=== PATIENT | male | born 1965 | race Two or more races ===

== ENCOUNTER 2024-12-03 16:57 | Inpatient (IN) | payer MEDICARE, MEDICAID ==
[~2024-12-03] VITALS: Ht 165.1 cm; Wt 87.8 kg
[2024-12-03 17:33] LABS: Basophils # (auto) 0.1 10 ^3/uL (0-0.2); Basophils % (auto) 0.4 % (0.0-2.0); Eosinophils # (auto) 0 10 ^3/uL (0-0.8); Hematocrit 44.5 % (41.0-53.0); Hemoglobin 15.1 g/dL (13.5-17.5); Lymphocytes # (auto) 1.8 10 ^3/uL (0.4-5.4); Lymphocytes % (auto) 12.6 % (10.0-50.0); Mean Corpuscular Hemoglobin 28.4 pg (28.0-32.0); Mean Corpuscular Volume 83.5 fL (80.0-100.0); Monocytes # (auto) 0.4 10 ^3/uL (0-1.3); Monocytes % (auto) 2.5 % (0.0-12.0); Neutrophils # (auto) 11.9 10 ^3/uL (1.6-8.6); Neutrophils % (auto) 84.5 % (37.0-80.0); Platelet Count (auto) 358 10^3/uL (140-450); Red Blood Cells 5.33 10^6/uL (4.5-5.90); Red Cell Distribution Width 14.1 % (11.8-14.3); White Blood Cell 14.1 10^3/uL (4.4-10.8)
[2024-12-03] MEDS: ONDANSETRON HCL 4 MG/2 ML VIAL IV ONE (17:50)
[2024-12-03] MEDS: SODIUM CHLORIDE 0.9% 1,000 ML IV ONE (17:50)
[2024-12-03] MEDS: FAMOTIDINE (10MG/ML) 2ML VL IV ONE (17:50)
[2024-12-03 17:54] LABS: Alanine Aminotransferase 32 U/L (7-40); Alkaline Phosphatase 113 U/L (46-116); Anion Gap 11 (5-15); Aspartate Aminotransferase 38 U/L (13-40); BUN/Creatinine Ratio 10.8 (10.0-20.0); Blood Urea Nitrogen 15 mg/dL (9-23); Carbon Dioxide 28 mmol/L (20-31); Chloride 99 mmol/L (98-107); INR 1.08 (0.9-1.15); Magnesium 1.9 mg/dL (1.6-2.6); Partial Thromboplastin Time 27.5 SEC (24.5-34.5); Potassium 4.1 mmol/L (3.5-5.1); Prothrombin Time 11.4 sec (9.3-11.8); Sodium 138 mmol/L (136-145)
[2024-12-03 17:55] LABS: Bilirubin, Total 0.6 mg/dL (0.2-1.0)
[2024-12-03 17:57] LABS: Albumin 5.1 g/dL (3.2-4.8); Blood Alcohol < 3.0 mg/dL (<10); Calcium 11.4 mg/dL (8.7-10.4); Glucose 150 mg/dL (74-106); Total Protein 8.4 g/dL (5.7-8.2)
[2024-12-03 18:08] LABS: Lipase 24 U/L (12-53)
[2024-12-03] MEDS: PIPERACILLIN-TAZOB 3.375GM 100 ML IV ONE (18:35)
--- NOTE | 2024-12-03 18:36 | DVH ---
Exam: CT CT AB PEL WO CON-NO ORAL OR IV History: n/v/d hematemesis, GI bleed Comparison Study: None available at time of dictation. TECHNIQUE: Multidetector CT of the abdomen was performed from lung bases to pubic symphysis. Imaging was performed without IV contrast. Axial, coronal and sagittal multiplanar reformats were obtained fr om the axial data set by the technologist. Radiation Dose Information: CT Dose: CTDI volume is 13.55 mGy. Dose-length product is 769.44 mGy*cm No IV contrast used. FINDINGS: Evaluation of solid organs is limited due to lack of intravenous contrast use. Findings: Lung Bases: No acute or significant lung base finding. Normal heart size. No pleural or pericardial effusion. Liver: The liver is normal in size. No focal lesions. Gallbladder and Biliary Tree: Unremarkable Spleen: Unremarkable Pancreas: The pancreas is grossly normal in appearance. Adrenal Glands: Unremarkable Kidneys: Kidneys are grossly normal without calculi or hydronephrosis. Bladder: Grossly unremarkable for degree of distention. Bowel: The stomach is grossly normal in appearance. Small bowel and colon are normal in caliber and d istribution. The appendix is not visualized; however, no secondary findings of acute appendicitis id entified. Ascites: Absent Lymphadenopathy: No mesenteric, retroperitoneal or periportal lymphadenopathy. Abdominal Wall and Mesentery: Unremarkable. Vasculature: The visualized abdominal aorta is normal in size and caliber. Evaluation of abdominal a nd pelvic vessels is limited due to lack of intravenous contrast. Pelvic Organs: Unremarkable Musculoskeletal: No aggressive focal bony lesions, acute fractures or dislocation. Soft tissues: Unremarkable IMPRESSION: 1. No findings to suggest bowel obstruction. 2. No calcified gallstones 3. No nephrolithiasis or hydronephrosis. 4. Small hiatal hernia. Radiation optimization: All CT scans at this facility use at least one of these dose optimization te chniques: automated exposure control mA and/or kV adjustment per patient size (includes targeted exa ms where dose is matched to clinical indication) or iterative reconstruction.
--- NOTE | 2024-12-03 18:41 | ED.PDOC ---
GI ASSESSMENT HPI Comments HPI: Poor Historian. 59y M who presents to the ED for chief complaint of abdominal pain. Pt had the following ED course: - pt states he has been having nausea and vomiting for the past 2 days - pt states he started to have blood in vomit today and also noted to have bloody bowel movement - pt has also associated abdominal pain, epigastric in location, non-radiating, rating the pain 8/10, with no associated exacerbating or relieving factors - pt states he is currently on ASA and Plavix from prior history of IL PMH: DDD, IL, hyperlipidemia, hypertension, Gastric ulcers PSH: denies Allergies: denies Social history: denies tobacco use, denies ETOH use, endorses drug use (marijuana) REVIEW OF SYSTEMS: CONSTITUTIONAL: Denies acute: fever, diaphoresis, chills, generalized weakness. HEAD: Denies acute: headache, photophobia Eyes: Denies acute: Double vision, vision loss, eye pain, eye discharge. EARS: Denies acute: tinnitus, hearing loss, ear discharge, ear pain, THROAT: Denies acute: sore throat, swelling, difficulty swallowing , pain with swallowing, change in voice. NECK: Denies acute: neck pain, neck swelling, stiff neck. HEART: Denies acute : chest pain, palpitations, LUNGS: Denies acute: SOB, wheezing, cough, hemoptysis ABDOMEN: Denies acute: , diarrhea, melena , hematochezia SKIN: Denies acute: rash, redness, lesions, itchiness. EXTREMITIES: Denies acute: calf pain, numbness, tingling, weakness, denies pain in extremity. Denies acute: Low back pain. Neuro: Denies acute: focal neurological deficit, motor or sensory focal neurological deficit, tremors, seizure like activity, confusion, dizziness, change in mental status, loss of bowel or bladder function, cauda equina like symptoms. : Denies acute: dysuria, hematuria, flank pain, increase in urinary frequency. PSYCH: Denies acute: hallucination, suicidal ideation, homicidal ideation. PHYSICAL EXAM: General: no acute distress, awake and alert. Head: normocephalic, atraumatic. Neck: supple, trachea is midline, no swelling. Throat: Normal phonation. Eyes:, no erythema, no purulent discharge, no proptosis, no icterus. Heart: regular rate, regular rhythm, no significant murmur appreciated. Lungs: no apparent respiratory distress, Able to speak in full sentences. No wheezing, no rhonchi, no crackles. No stridors Clear to auscultation bilaterally. Abdomen: Epigastric tender to palpation, non distended, soft, no guarding, no rebound, + bowel sounds. Neuro: Awake, Alert, oriented to name, self, situation, follows commands GCS=15. Speech is normal. Skin: no petechia, no purpura, no cyanosis, non-pale, not jaundice. Lower extremities: --no - Pitting edema no deformity, no focal swelling, no calf TTP. Makes eye contact. moves all four extremities. Face: no apparent facial droop. No CVA tenderness to percussion bilaterally. Ambulating in the ED independently. Ears: Normal appearing TM b/l, Stroke: finger to nose cerebellar testing is intact. No pronator drift. Symmetrical scale expert muscle strength b/l PERRLA, EOM-I CN 2-12 are grossly intact, Pedal pulses are palpable. No nystagmus. No nuchal rigidity, Kernig's sign, Brudzinski's sign, no meningeal signs. ED COURSE: Chief Complaint: Abdominal Pain Time Seen by MD: 17:04 Reviewed Notes: Nurses Notes, Allergies Allergies: Coded Allergies: NO KNOWN ALLERGIES (Unverified , 12/03/24) Information Source: Patient Mode of Arrival: Ambulatory Was a procedure done? Was a procedure done?: No GI differential Dx Differential Diagnosis: Other (DDX include but not limited to diverticulitis, colitis, gastroenteritis, acute abdomen, SBO, enteritis, constipation, volvulus, appendicitis, Gallbladder disease, choledocolithiasis, ascending cholangitis, pancreatitis, intraAbdominal mass/neoplasm, hepatitis, UTI, pylonephritis, kidney stone, aneurysm, dissection, Inflammatory bowel disease, gastroparesis, ischemic bowel.) X-Ray, Labs, Meds, VS Vital Signs Date Time Temp Pulse Resp B/P (MAP) Pulse Ox O2 Delivery O2 Flow Rate FiO2 12/03/24 19:39 89 17 97 Room Air* 0 21 12/03/24 19:30 99.0 79 17 151/86 (107) 97 99.0 12/03/24 18:24 Room Air* 0 21 12/03/24 18:00 97.5 74 12 169/90 (116) 97 97.5 12/03/24 17:09 102 12/03/24 17:06 98.8 130 20 146/89 (108) 96 98.8 Lab Test 12/03/24 18:40 12/03/24 18:30 12/03/24 17:18 12/03/24 17:10 Range/Units Urine Color Light-yellow Yellow Urine Clarity Clear Clear Urine pH 8.0 5.0-9.0 Urine Specific [place] 1.016 1.001-1.035 Urine Protein Negative Negative Urine Ketones Negative Negative Urine Blood Negative Negative /uL Urine Nitrite Negative Negative Urine Bilirubin Negative Negative Urine Urobilinogen Normal Negative mg/dL Urine Leukocyte Esterase Negative Negative /uL Urine RBC 2 0 - 3 /hpf Urine Microscopic WBC 1 0-3 /HPF Urine Squamous Epithelial Cells Few <5 /hpf Urine Amorphous Crystals Few None Seen /hpf Urine Bacteria None seen None Seen /hpf Urine Glucose Normal Normal mg/dL Urine Opiates Screen Pending Urine Fentanyl Screen Pending Urine Barbiturates Screen Pending Urine Phencyclidine Screen Pending Urine Amphetamines Screen Pending Urine Benzodiazepines Screen Pending Urine Cocaine Screen Pending Urine Cannabinoids Screen Pending Troponin I High Sensitivity 5 5 </=54 ng/L White Blood Count 14.1 H 4.4-10.8 10^3/uL Red Blood Count 5.33 4.5-5.90 10^6/uL Hemoglobin 15.1 13.5-17.5 g/dL Hematocrit 44.5 41.0-53.0 % Mean Corpuscular Volume 83.5 80.0-100.0 fL Mean Corpuscular Hemoglobin 28.4 28.0-32.0 pg Mean Corpuscular Hemoglobin Concent 34.0 32.0-36.0 g/dL Red Cell Distribution Width 14.1 11.8-14.3 % Platelet Count 358 140-450 10^3/uL Mean Platelet Volume 8.2 6.9-10.8 fL Neutrophils (%) (Auto) 84.5 H 37.0-80.0 % Lymphocytes (%) (Auto) 12.6 10.0-50.0 % Monocytes (%) (Auto) 2.5 0.0-12.0 % Eosinophils (%) (Auto) 0.0 0.0-7.0 % Basophils (%) (Auto) 0.4 0.0-2.0 % Neutrophils # (Auto) 11.9 H 1.6-8.6 10 ^3/uL Lymphocytes # (Auto) 1.8 0.4-5.4 10 ^3/uL Monocytes # (Auto) 0.4 0-1.3 10 ^3/uL Eosinophils # (Auto) 0 0-0.8 10 ^3/uL Basophils # (Auto) 0.1 0-0.2 10 ^3/uL Nucleated Red Blood Cells 0.0 % Prothrombin Time 11.4 9.3-11.8 sec Prothrombin Time INR 1.08 0.9-1.15 Activated Partial Thromboplast Time 27.5 24.5-34.5 SEC Sodium Level 138 136-145 mmol/L Potassium Level 4.1 3.5-5.1 mmol/L Chloride Level 99 98-107 mmol/L Carbon Dioxide Level 28 20-31 mmol/L Anion Gap 11 5-15 Blood Urea Nitrogen 15 9-23 mg/dL Creatinine 1.39 H 0.700-1.30 mg/dL Glomerular Filtration Rate Calc 59 >90 mL/min BUN/Creatinine Ratio 10.8 10.0-20.0 Serum Glucose 150 H 74-106 mg/dL Calcium Level 11.4 H 8.7-10.4 mg/dL Magnesium Level 1.9 1.6-2.6 mg/dL Total Bilirubin 0.6 0.2-1.0 mg/dL Aspartate Amino Transferase (AST) 38 13-40 U/L Alanine Aminotransferase (ALT) 32 7-40 U/L Alkaline Phosphatase 113 46-116 U/L B-Type Natriuretic Peptide 26.60 0-100 pg/mL Total Protein 8.4 H 5.7-8.2 g/dL Albumin 5.1 H 3.2-4.8 g/dL Lipase 24 12-53 U/L Plasma/Serum Blood Alcohol < 3.0 <10 mg/dL Lactic Acid Level 2.0 0.4-2.0 mmol/L Current Medications Medications (Trade) Dose Ordered Sig/Shauna Route Start Time Stop Time Status Last Admin Sodium Chloride 1,000 ml @ 1,000 mls/hr Q1H ONCE IV 12/03/24 17:15 12/03/24 18:14 DC 12/03/24 17:50 Famotidine (Pepcid Injection) 20 mg ONCE ONCE IV 12/03/24 17:15 12/03/24 17:16 DC 12/03/24 17:50 Ondansetron HCl (Zofran) 8 mg ONCE ONCE IV 12/03/24 17:15 12/03/24 17:16 DC 12/03/24 17:50 Piperacillin Sod/ Tazobactam Sod 100 ml @ 100 mls/hr ONCE ONCE IV 12/03/24 17:45 12/03/24 18:44 DC 12/03/24 18:35 [place] [id number] Ph: [phone] DIAGNOSTIC IMAGING Diagnostic Imaging Report : [id number] Signed PATIENT: MICKI POPE ACCT: [id number] UNIT: [id number] : 1965 LOC: ER ROOM / BED: / AGE / SEX: 59 / M ADM STATUS: REG ER SERVICE 1702 ORDERING PHYSICIAN: MK KUMAR DO PROCEDURE(s): ABPL - CT AB PEL WO CON-NO ORAL OR IV REASON: n/v/d hematemesis, GI bleed ORDER NUMBER(s): [id number], ACCESSION NUMBER(s): [id number] Exam: CT CT AB PEL WO CON-NO ORAL OR IV History: n/v/d hematemesis, GI bleed Comparison Study: None available at time of dictation. TECHNIQUE: Multidetector CT of the abdomen was performed from lung bases to pubic symphysis. Imaging was performed without IV contrast. Axial, coronal and sagittal multiplanar reformats were obtained from the axial data set by the technologist. Radiation Dose Information: CT Dose: CTDI volume is 13.55 mGy. Dose-length product is 769.44 mGy*cm No IV contrast used. FINDINGS: Evaluation of solid organs is limited due to lack of intravenous contrast use. Findings: Lung Bases: No acute or significant lung base finding. Normal heart size. No pleural or pericardial effusion. Liver: The liver is normal in size. No focal lesions. Gallbladder and Biliary Tree: Unremarkable Spleen: Unremarkable Pancreas: The pancreas is grossly normal in appearance. Adrenal Glands: Unremarkable Kidneys: Kidneys are grossly normal without calculi or hydronephrosis. Bladder: Grossly unremarkable for degree of distention. Bowel: The stomach is grossly normal in appearance. Small bowel and colon are normal in caliber and distribution. The appendix is not visualized; however, no secondary findings of acute appendicitis identified. Ascites: Absent Lymphadenopathy: No mesenteric, retroperitoneal or periportal lymphadenopathy. Abdominal Wall and Mesentery: Unremarkable. Vasculature: The visualized abdominal aorta is normal in size and caliber. Evaluation of abdominal and pelvic vessels is limited due to lack of intravenous contrast. Pelvic Organs: Unremarkable Musculoskeletal: No aggressive focal bony lesions, acute fractures or dislocation. Soft tissues: Unremarkable IMPRESSION: 1. No findings to suggest bowel obstruction. 2. No calcified gallstones 3. No nephrolithiasis or hydronephrosis. 4. Small hiatal hernia. Radiation optimization: All CT scans at this facility use at least one of these dose optimization techniques: automated exposure control mA and/or kV adjustment per patient size (includes targeted exams where dose is matched to clinical indication) or iterative reconstruction. ATED BY: EVA FRITZ Jr., DO DICTATED DATE/TIME: 12/03/241832 SIGNED BY: EVA FRITZ Jr., SIGNED DATE/TIME: 12/03/241832 CC: Time of 1ST Reevaluation: 19:43 Reevaluation 1ST: Improved Patient Education/Counseling: Diagnosis, Treatment Family Education/Counseling: No Family Present Comments Patient presented with the above HPI.-abdominal pain and hematemesis-----workup was initiated. patient was found with the above mentioned diagnosis. the following medications were ordered: please refer to order lists of meds and tests obtained by myself Dr. Kumar. Patient ED course and VS have been stabilized. Patient has been reassessed in the ED and remained in a stable condition. Pertinent incidental findings were discussed with the patient and/or family. Patient/family voices understanding and is agreeable with plan. Patient has been observed in the ED adequate length of time to insure improvement/stability. Escalation of care considered: Consideration of escalation to observation or admission Patient was ADMITTED to the medicine team for further evaluation and treatment of their presentation. All the reports of any imaging studies that were ordered by myself were reviewed by myself. Departure 1 Departure Time of Disposition: 18:40 Impression: Primary Impression: GI bleed Additional Impression: Hiatal hernia Disposition: ADMITTED INPATIENT Admit to: Tele Condition: Guarded Discharged With: Self Critical Care Note Critical Care Time?: No Heart Score Heart Score: Heart Score Response (Comments) Value History N/A 0 EKG N/A 0 Age N/A 0 Risk Factors N/A 0 Troponin N/A 0 Total 0 I personally scribed for MK KUMAR DO ([email or web address]) on 12/03/24 at 19:01. Electronically submitted by Marie Torres ([facility]). MK KUMAR DO Dec 03, 2024 18:41
[2024-12-03 19:24] LABS: Urine Bacteria None Seen /hpf (None Seen)
[2024-12-03 19:39] VITALS: PULSE 89; RESP 17; O2SAT 97
[2024-12-03 19:39] LABS: Urine Amorphous Crystal FEW /hpf (None Seen); Urine Blood Negative /uL (Negative); Urine Clarity Clear (Clear); Urine Color Light-Yellow (Yellow); Urine Protein, UAD Negative (Negative); Urine Specific Gravity 1.016 (1.001-1.035); Urine Squamous Epithelial Cell FEW /hpf (<5); Urine Urobilinogen Normal (Negative); Urine WBC 1 /HPF (0-3)
[2024-12-03 19:54] LABS: Opiate Scree,Urine Neg (NEGATIVE)
[2024-12-03 19:58] LABS: Amphetamine Screen, Urine Neg (NEGATIVE); Barbiturate Scree,Urine Neg (NEGATIVE); Benzodiazephine Screen, Urine Neg (NEGATIVE); Cannabinoid Screen, Urine Pos (NEGATIVE); Cocaine Screen, Urine Neg (NEGATIVE); Phencyclidine Screen, Urine Neg (NEGATIVE)
[2024-12-03] MEDS ORDERED: ONDANSETRON HCL 4 MG/2 ML VIAL IV PRN (23:30)
[2024-12-03] MEDS ORDERED: ACETAMINOPHEN 325 MG TAB PO PRN (23:30)
--- NOTE | 2024-12-03 23:30 | DVHHPRES ---
History of Present Illness Resident Creating Document: MICHAEL BRADY RESIDENT Reason for Visit: Abdominal pains History of Present Illness Patient is a [age] year man past medical history of CAD status post stent placement, chronic back pain presented to the ED with 1 day history of severe epigastric pain. Patient described the pain as burning sensation in his stomach. He actually had a similar episode about a year ago where he presented to the ED and received a cocktail that made him feel better and was later diagnosed of acid reflux and started on omeprazole. He has been well until yesterday morning. Patient said he started having burning pains in his epigastric region rated 10/10 with no radiation but associated with nausea and vomiting. Patient mentioned that he had vomited blood once and subsequent vomit were brownish in color. Patient has never had an EGD or a colonoscopy. Past medical history: CAD status post 2 stent placement Surgery he has seen: 2 stent placement Family history noncontributory Social history: Lives with a sister smoke 1 pack a day for 10 years. Review of Systems Review of Systems Constitutional: Denies fever no chills no feeling of malaise HEENT: Denies headache, ear pain, ear discharges, conjunctivitis, nasal discharge throat pain Cardiovascular: Denies chest pain, palpitation, orthopnea, PND, or pedal edema Respiratory: Denies shortness of breath, cough cough, sputum production, hemoptysis, GI: abdominal pain, nausea, vomiting; Denies diarrhea, hematemesis, hematochezia, : Denies frequency, urgency, hematuria, Endocrine: Denies unintentional weight gain or weight loss, feeling of hot flashes, Lupillo: Denies easy bruising, bleeding disorders, epistaxis Musculoskeletal: Denies joint pains, muscle aches Psych: No evidence of depression, erika, suicidal ideation Allergies: Coded Allergies: NO KNOWN ALLERGIES (Unverified , 12/03/24) Exam Vital Signs Vital Signs Date Time Temp Pulse Resp B/P (MAP) Pulse Ox O2 Delivery O2 Flow Rate FiO2 12/03/24 21:30 98.9 89 15 144/89 (107) 97 98.9 12/03/24 19:39 Room Air* 0 21 Exam General Appearance: Alert, Oriented X3, Cooperative, No acute distress HEENT: Atraumatic, PERRLA, EOMI, Mucous membrane moist/pink Respiratory: Clear to auscultation, Normal air movement Cardiovascular: Regular rate, Normal S1, Normal S2, No murmurs, no chest wall tenderness Abdominal: Mild tenderness in the epigastric region. No lymph node palpated Extremities: No clubbing, No cyanosis, No edema, Normal pulses, No tenderness/swelling Skin: No rashes, No breakdown, No significant lesion Neuro: Normal gait, Normal speech, Strength at 5/5 X4 ext, Normal tone, Se nsation intact, Cranial nerves 3-12 NL, Reflexes 2+ Psych/Mental Status: Mental status NL, Mood NL Labs/Xrays Labs Test 12/03/24 18:40 12/03/24 18:30 12/03/24 17:18 12/03/24 17:10 Range/Units Urine Color Light-yellow Yellow Urine Clarity Clear Clear Urine pH 8.0 5.0-9.0 Urine Specific [place] 1.016 1.001-1.035 Urine Protein Negative Negative Urine Ketones Negative Negative Urine Blood Negative Negative /uL Urine Nitrite Negative Negative Urine Bilirubin Negative Negative Urine Urobilinogen Normal Negative mg/dL Urine Leukocyte Esterase Negative Negative /uL Urine RBC 2 0 - 3 /hpf Urine Microscopic WBC 1 0-3 /HPF Urine Squamous Epithelial Cells Few <5 /hpf Urine Amorphous Crystals Few None Seen /hpf Urine Bacteria None seen None Seen /hpf Urine Glucose Normal Normal mg/dL Urine Opiates Screen Neg NEGATIVE Urine Fentanyl Screen Neg NEGATIVE Urine Barbiturates Screen Neg NEGATIVE Urine Phencyclidine Screen Neg NEGATIVE Urine Amphetamines Screen Neg NEGATIVE Urine Benzodiazepines Screen Neg NEGATIVE Urine Cocaine Screen Neg NEGATIVE Urine Cannabinoids Screen Pos NEGATIVE Troponin I High Sensitivity 5 </=54 ng/L White Blood Count 14.1 H 4.4-10.8 10^3/uL Red Blood Count 5.33 4.5-5.90 10^6/uL Hemoglobin 15.1 13.5-17.5 g/dL Hematocrit 44.5 41.0-53.0 % Mean Corpuscular Volume 83.5 80.0-100.0 fL Mean Corpuscular Hemoglobin 28.4 28.0-32.0 pg Mean Corpuscular Hemoglobin Concent 34.0 32.0-36.0 g/dL Red Cell Distribution Width 14.1 11.8-14.3 % Platelet Count 358 140-450 10^3/uL Mean Platelet Volume 8.2 6.9-10.8 fL Neutrophils (%) (Auto) 84.5 H 37.0-80.0 % Lymphocytes (%) (Auto) 12.6 10.0-50.0 % Monocytes (%) (Auto) 2.5 0.0-12.0 % Eosinophils (%) (Auto) 0.0 0.0-7.0 % Basophils (%) (Auto) 0.4 0.0-2.0 % Neutrophils # (Auto) 11.9 H 1.6-8.6 10 ^3/uL Lymphocytes # (Auto) 1.8 0.4-5.4 10 ^3/uL Monocytes # (Auto) 0.4 0-1.3 10 ^3/uL Eosinophils # (Auto) 0 0-0.8 10 ^3/uL Basophils # (Auto) 0.1 0-0.2 10 ^3/uL Nucleated Red Blood Cells 0.0 % Prothrombin Time 11.4 9.3-11.8 sec Prothrombin Time INR 1.08 0.9-1.15 Activated Partial Thromboplast Time 27.5 24.5-34.5 SEC Sodium Level 138 136-145 mmol/L Potassium Level 4.1 3.5-5.1 mmol/L Chloride Level 99 98-107 mmol/L Carbon Dioxide Level 28 20-31 mmol/L Anion Gap 11 5-15 Blood Urea Nitrogen 15 9-23 mg/dL Creatinine 1.39 H 0.700-1.30 mg/dL Glomerular Filtration Rate Calc 59 >90 mL/min BUN/Creatinine Ratio 10.8 10.0-20.0 Serum Glucose 150 H 74-106 mg/dL Calcium Level 11.4 H 8.7-10.4 mg/dL Magnesium Level 1.9 1.6-2.6 mg/dL Total Bilirubin 0.6 0.2-1.0 mg/dL Aspartate Amino Transferase (AST) 38 13-40 U/L Alanine Aminotransferase (ALT) 32 7-40 U/L Alkaline Phosphatase 113 46-116 U/L B-Type Natriuretic Peptide 26.60 0-100 pg/mL Total Protein 8.4 H 5.7-8.2 g/dL Albumin 5.1 H 3.2-4.8 g/dL Lipase 24 12-53 U/L Plasma/Serum Blood Alcohol < 3.0 <10 mg/dL Lactic Acid Level 2.0 0.4-2.0 mmol/L Assessment/Plan Assessment/Plan Assessment Probable Gastritis, rule out upper GI bleed Leukocytosis Acute kidney injury Cannabinoids use positive in UDS Obesity Plan Start pantoprazole 40 mg b.i.d. Repeat CBC Adequate hydration Counseled patient on weight loss IV Fluid, NPO GI consult Goal of care discussed for more than 25 minute: Full code Case and plan discussed with Dr. Howard Plan discussed with: Patient My Orders Orders - MICHAEL BRADY Procedure Category Date Status Time Admit ADMIT 12/03/24 Verified 23:22 Code Status CODE 12/03/24 Verified 23:22 Vital Signs MARY KATE 12/03/24 Verified 23:22 Review Orders With [facility] 12/03/24 Verified Adm. 23:22 Npo (Nothing By DIET 12/04/24 Verified Mouth) Diet Breakfast Acetaminophen Tablet PHA 12/03/24 Verified (Tylenol Tablet) 23:30 Notify Md Of Changes [facility] 12/03/24 Verified From Base 23:22 Advance Directive MARY KATE 12/03/24 Verified 23:22 Patient Condition ORDERS 12/03/24 Verified 23:22 Allergies MARY KATE 12/03/24 Verified 23:22 Ondansetron Hcl PHA 12/03/24 Verified (Zofran) 23:30 Hemoglobin A1c LAB 12/03/24 Verified 23:22 Notify Md Of Changes [facility] 12/03/24 Verified From Base 23:22 Sequential MARY KATE 12/03/24 Verified Compression Device 23:22 Complete Blood Count LAB 12/04/24 Verified 04:00 Basic Metabolic Panel LAB 12/04/24 Verified 04:00 NS PHA 12/03/24 Verified 23:30 Ceftriaxone Ivpb PHA 12/04/24 Verified Rocephin 09:00 Ceftriaxone Ivpb PHA 12/03/24 Verified Rocephin 23:30 Pantoprazole PHA 12/03/24 Verified (Protonix) 23:30 Pantoprazole PHA 12/04/24 Verified (Protonix) 10:00 Lisinopril Tablet PHA 12/03/24 Verified (Zestril Tablet) 23:30 Lisinopril Tablet PHA 12/04/24 Verified (Zestril Tablet) 10:00 Date of Service: Dec 03, 2024 Billing Provider: MANDY HOWARD MD Common Visit Codes: [id number] INP/OBS CARE (HIGH) MICHAEL BRADY Dec 03, 2024 23:30 MANDY HOWARD MD Dec 04, 2024 18:47
[2024-12-03] MEDS: LISINOPRIL 5 MG TAB PO ONE (23:36)
[2024-12-03] MEDS: cefTRIAXone 1GM/50ML D5W 50 ML IV ONE (23:42)
[2024-12-03] MEDS: SODIUM CHLORIDE 0.9% 1,000 ML IV SCH (23:42)
[2024-12-03] MEDS: PANTOPRAZOLE 40 MG/10 ML VIAL INJ IV ONE (23:42)
[2024-12-04 02:06] VITALS: BP 114/77; PULSE 80; RESP 19; TEMP 97.3; O2SAT 94
[2024-12-04 05:00] VITALS: BP 136/88; PULSE 86; RESP 18; TEMP 97.5; O2SAT 95
[2024-12-04] MEDS: MORPHINE SULFATE INJ 2 MG/ml SYRG IM ONE (06:18)
[2024-12-04 07:27] LABS: Basophils # (auto) 0.1 10 ^3/uL (0-0.2); Basophils % (auto) 0.8 % (0.0-2.0); Eosinophils # (auto) 0 10 ^3/uL (0-0.8); Eosinophils % (auto) 0.3 % (0.0-7.0); Hematocrit 37.7 % (41.0-53.0); Lymphocytes # (auto) 2.5 10 ^3/uL (0.4-5.4); Lymphocytes % (auto) 25.3 % (10.0-50.0); Mean Corpuscular Hgb Conc. 34.5 g/dL (32.0-36.0); Monocytes # (auto) 0.6 10 ^3/uL (0-1.3); Monocytes % (auto) 6.3 % (0.0-12.0); Neutrophils # (auto) 6.6 10 ^3/uL (1.6-8.6); Neutrophils % (auto) 67.3 % (37.0-80.0); Nucleated Red Blood Cells % 0.1 %; Platelet Count (auto) 273 10^3/uL (140-450); Red Blood Cells 4.49 10^6/uL (4.5-5.90); Red Cell Distribution Width 13.9 % (11.8-14.3); White Blood Cell 9.8 10^3/uL (4.4-10.8)
[2024-12-04 07:42] LABS: Chloride 105 mmol/L (98-107); Potassium 3.8 mmol/L (3.5-5.1); Sodium 139 mmol/L (136-145)
[2024-12-04 07:43] LABS: Anion Gap 7 (5-15); Calcium 9.4 mg/dL (8.7-10.4); Carbon Dioxide 27 mmol/L (20-31)
[2024-12-04 07:48] LABS: BUN/Creatinine Ratio 10.7 (10.0-20.0); Blood Urea Nitrogen 13 mg/dL (9-23); Glucose 101 mg/dL (74-106)
[2024-12-04] MEDS: cefTRIAXone 1GM/50ML D5W 50 ML IV SCH (08:30)
[2024-12-04] MEDS: PANTOPRAZOLE 40 MG/10 ML VIAL INJ IV SCH (08:30)
[2024-12-04] MEDS: LISINOPRIL 5 MG TAB PO SCH (08:30)
[2024-12-04 09:00] VITALS: BP 127/83; PULSE 76; RESP 18; TEMP 97.8; O2SAT 95
[2024-12-04] MEDS ORDERED: LISI-275 PO (10:29)
--- NOTE | 2024-12-04 11:44 | DVHINCON2 ---
GI Consult Consult Note GI consult note Date of Consultation: 12/04/2024 Chief Complaint: GI bleed Referring Physician: Dr. Casas H&P: 59-year-old male presented to ER complaining of abdominal pain Patient complains of burning epigastric pain for the past two days. No pain at this time Patient also complains of nausea and vomiting, mostly brown in color, with slight red drops of blood No nausea or vomiting today. Patient denies history of GERD Denies melena or red blood in stool No colonoscopy or endoscopy in the past Patient takes aspirin and Plavix, last dosage yesterday Patient admits to using marijuana Past Medical History: DDD, IA, hyperlipidemia, hypertension, Gastric ulcers Past Surgical History: To stent placement Social History: + smoking, no drinking ETOH , positive marijuana use Family History: Noncontributory Review of Systems: Constitutional: no fever, chill, weight loss Heart: no chest pain, no chest pressure Lung: no cough, no dyspnea with exertion Abdomen: see HPI Physical exam: General: NAD, AAOX3 Chest: lung alvarez clear to auscultation Heart: RRR, no murmur Abdomen: non-distended, no tenderness to palpation, +BS Labs: Labs Test 12/04/24 06:47 12/03/24 18:40 12/03/24 18:30 12/03/24 17:18 Range/Units White Blood Count 9.8 # 4.4-10.8 10^3/uL Red Blood Count 4.49 L 4.5-5.90 10^6/uL Hemoglobin 13.0 L 13.5-17.5 g/dL Hematocrit 37.7 #L 41.0-53.0 % Mean Corpuscular Volume 84.0 80.0-100.0 fL Mean Corpuscular Hemoglobin 29.0 28.0-32.0 pg Mean Corpuscular Hemoglobin Concent 34.5 32.0-36.0 g/dL Red Cell Distribution Width 13.9 11.8-14.3 % Platelet Count 273 140-450 10^3/uL Mean Platelet Volume 8.2 6.9-10.8 fL Neutrophils (%) (Auto) 67.3 37.0-80.0 % Lymphocytes (%) (Auto) 25.3 10.0-50.0 % Monocytes (%) (Auto) 6.3 0.0-12.0 % Eosinophils (%) (Auto) 0.3 0.0-7.0 % Basophils (%) (Auto) 0.8 0.0-2.0 % Neutrophils # (Auto) 6.6 1.6-8.6 10 ^3/uL Lymphocytes # (Auto) 2.5 0.4-5.4 10 ^3/uL Monocytes # (Auto) 0.6 0-1.3 10 ^3/uL Eosinophils # (Auto) 0 0-0.8 10 ^3/uL Basophils # (Auto) 0.1 0-0.2 10 ^3/uL Nucleated Red Blood Cells 0.1 % Sodium Level 139 136-145 mmol/L Potassium Level 3.8 3.5-5.1 mmol/L Chloride Level 105 98-107 mmol/L Carbon Dioxide Level 27 20-31 mmol/L Anion Gap 7 5-15 Blood Urea Nitrogen 13 9-23 mg/dL Creatinine 1.22 0.700-1.30 mg/dL Glomerular Filtration Rate Calc 69 >90 mL/min BUN/Creatinine Ratio 10.7 10.0-20.0 Serum Glucose 101 74-106 mg/dL Calcium Level 9.4 8.7-10.4 mg/dL Urine Color Light-yellow Yellow Urine Clarity Clear Clear Urine pH 8.0 5.0-9.0 Urine Specific [place] 1.016 1.001-1.035 Urine Protein Negative Negative Urine Ketones Negative Negative Urine Blood Negative Negative /uL Urine Nitrite Negative Negative Urine Bilirubin Negative Negative Urine Urobilinogen Normal Negative mg/dL Urine Leukocyte Esterase Negative Negative /uL Urine RBC 2 0 - 3 /hpf Urine Microscopic WBC 1 0-3 /HPF Urine Squamous Epithelial Cells Few <5 /hpf Urine Amorphous Crystals Few None Seen /hpf Urine Bacteria None seen None Seen /hpf Urine Glucose Normal Normal mg/dL Urine Opiates Screen Neg NEGATIVE Urine Fentanyl Screen Neg NEGATIVE Urine Barbiturates Screen Neg NEGATIVE Urine Phencyclidine Screen Neg NEGATIVE Urine Amphetamines Screen Neg NEGATIVE Urine Benzodiazepines Screen Neg NEGATIVE Urine Cocaine Screen Neg NEGATIVE Urine Cannabinoids Screen Pos NEGATIVE Troponin I High Sensitivity 5 </=54 ng/L Prothrombin Time 11.4 9.3-11.8 sec Prothrombin Time INR 1.08 0.9-1.15 Activated Partial Thromboplast Time 27.5 24.5-34.5 SEC Hemoglobin A1c 5.6 <5.7 % A1C Magnesium Level 1.9 1.6-2.6 mg/dL Total Bilirubin 0.6 0.2-1.0 mg/dL Aspartate Amino Transferase (AST) 38 13-40 U/L Alanine Aminotransferase (ALT) 32 7-40 U/L Alkaline Phosphatase 113 46-116 U/L B-Type Natriuretic Peptide 26.60 0-100 pg/mL Total Protein 8.4 H 5.7-8.2 g/dL Albumin 5.1 H 3.2-4.8 g/dL Lipase 24 12-53 U/L Plasma/Serum Blood Alcohol < 3.0 <10 mg/dL Test 12/03/24 17:10 Range/Units Lactic Acid Level 2.0 0.4-2.0 mmol/L Imaging: CT abdomen pelvis IMPRESSION: 1. No findings to suggest bowel obstruction. 2. No calcified gallstones 3. No nephrolithiasis or hydronephrosis. 4. Small hiatal hernia. Assessment: Abdominal pain Possible GI bleed Cannabinoids use Plan: Discussed with Dr. Vidal Discussed plan for EGD for today, patient at this time denies during the procedure because he is feeling better. Discussed risks benefits and alternatives of the procedure. Patient understands. But still declines Continue Protonix and Zofran Clear liquid diet If no further bleeding recommend outpatient follow-up in GI clinic for elective procedures to be planned Discussed plan with patient and RN Thank you for the consult Date of Service: Dec 04, 2024 Billing Provider: MJ WU Common Visit Codes: CONSULT ONLY Consultation Codes: [id number] CONSULT <45MIN MJ WU Dec 04, 2024 11:44
--- NOTE | 2024-12-04 12:21 | ECG ---
[facility] Test Date: 2024-12-03 Test Time: 17:09:06 Pat Name: MICKI POPE Department: ED Room: 0298 B Gender: M Pricing Strategist: NOREEN : 1965 Requested By: MK KUMAR Order Number: [id number] Reading MD: Thomas Garcias Measurements Intervals Grant Rate: 102 P: 50 WA: 148 QRS: 35 QRSD: 96 T: 70 QT: 350 QTc: 456 Interpretive Statements Sinus tachycardia Low voltage, precordial leads Minimal ST depression, lateral leads Electronically Signed On 12-05-2024 17:42:15 PDT by Thomas Garcias Please click the below link to view image of tracing.
[2024-12-04 13:00] VITALS: BP 116/72; PULSE 74; RESP 17; TEMP 98; O2SAT 94
--- NOTE | 2024-12-04 15:23 | DVHPNRES ---
Progress Note Date Seen: Dec 04, 2024 Resident Creating Document: ANGUS WELSH RESIDENT Medical Necessity Reason Pt with a Central, PICC or Fol: No Subjective Review of Systems Patient is a 59 year male with past medical history of CAD status post stent placement, chronic back pain presented to the ED with 1 day history of severe epigastric pain. Patient described the pain as burning sensation in his stomach. He actually had a similar episode about a year ago where he presented to the ED and received a cocktail that made him feel better and was later diagnosed of acid reflux and started on omeprazole. He has been well until yesterday morning. Patient said he started having burning pains in his epigastric region rated 10/10 with no radiation but associated with nausea and vomiting. Patient mentioned that he had vomited blood once and subsequent vomit were brownish in color. Patient has never had an EGD or a colonoscopy. Patient was seen and examined on the bedside. He is alert, oriented x3. mentioned relief of epigastric pain and no more hematemesis, coffee-ground emesis, hematochezia or blood in stool. GI evaluated the patient and recommended EGD but patient refused to do that. Constitutional: No: Fever, Chills, Sweats, Weakness, Malaise, Other Eyes: No: Pain, Vision change, Conjunctivae inflammation, Eyelid inflammation, Other, Redness ENT: No: Ear pain, Ear discharge, Nose pain, Nose discharge, Nose congestion, Mouth pain, Mouth swelling, Throat pain, Throat swelling, Other Respiratory: Shortness of breath, improving No: Cough, Dry,Wheezing, Hemoptysis, Pleuritic Pain, Sputum, Wheezing, Other Cardiovascular: No: Chest Pain, Palpitations, Orthopnea, Paroxysmal Noc. Dyspnea, Edema, Lt Headedness, Other Gastrointestinal: No: Nausea, Vomiting, Abdominal Pain, Diarrhea, Constipation, Melena, Hematochezia, Other Musculoskeletal: No: other, neck pain, shoulder pain, arm pain, back pain, hand pain, leg pain, foot pain Neurological:; No: Weakness, Numbness, Incoordination, Change in speech, Confusion, Seizures Objective vital signs Vital Sign Date Time Temp Pulse Resp B/P (MAP) Pulse Ox O2 Delivery O2 Flow Rate FiO2 12/04/24 13:00 98.0 74 17 116/72 (87) 94 98.0 12/04/24 08:15 Room Air* 0 21 Total Intake and Output 12/03/24 12/03/24 12/04/24 15:00 23:00 07:00 Intake Total 1100 ml 50 ml Balance 1100 ml 50 ml medications Current Medications Medications Dose Ordered Sig/Shauna Route Start Time Stop Time Status Last Admin Dose Admin Acetaminophen 650 mg Q6HP PRN PO 12/03/24 23:30 Ondansetron HCl 4 mg Q4HP PRN IV 12/03/24 23:30 Sodium Chloride 1,000 ml @ 100 mls/hr Q10H IV 12/03/24 23:30 12/04/24 12:35 100 MLS/HR Ceftriaxone Sodium 50 ml @ 100 mls/hr DAILY@09 IV 12/04/24 09:00 12/04/24 08:30 100 MLS/HR Pantoprazole Sodium 40 mg BID IV 12/04/24 10:00 12/04/24 08:30 40 MG Lisinopril 5 mg DAILY PO 12/04/24 10:00 12/04/24 08:30 5 MG Morphine Sulfate 1 mg Q4HP PRN IV 12/04/24 05:45 Examination Physical examination: General Appearance: Alert, Oriented X3, Cooperative, No acute distress HEENT: Atraumatic, PERRLA, EOMI, Mucous membrane moist/pink Respiratory: Clear to auscultation, Normal air movement Cardiovascular: Regular rate, Normal S1, Normal S2, No murmurs, no chest wall tenderness Abdominal: Normal bowel sounds, Soft, No tenderness, No hepatospenomegaly, No masses Extremities: No clubbing, No cyanosis, No edema, Normal pulses, No tenderness/swelling Skin: No rashes, No breakdown, No significant lesion Neuro: Normal gait, Normal speech, Strength at 5/5 X4 ext, Normal tone, Sensation intact, Cranial nerves 3-12 NL, Reflexes 2+ Psych/Mental Status: Mental status NL, Mood NL laboratory and microbiology Laboratory Tests 12/04/24 06:47 Test 12/04/24 06:47 Range/Units Serum Glucose 101 74-106 mg/dL Labs and/or images reviewed: Labs reviewed by me, Image(s) reviewed by me Problem List/Assessment/Plan Problem List/Assessment/Plan Assessment and plan: # Intractable abdominal pain likely due to gastritis # Possible upper GI bleeding - CT abdomen pelvis is unremarkable - IV Protonix 40 mg b.i.d. - Carafate 1 g p.o. b.i.d. - GI evaluated the patient and recommended EGD but patient refused to do that - Stool occult blood negative # LIA likely hemodynamically mediated /VMN - IV normal saline at 100 mL/hours - Monitor BMP # Hypercalcemia likely due to dehydration resolved # Cannabinoid use disorder - UDS is positive for cannabinoids - Counseled patient regarding drug abuse and rehabilitation Diet : Clear liquid diet PUD prophylaxis: Protonix DVT prophylaxis: Hold due to the possibility of the bleeding Code status : Full code Plan discussed with Dr. Lawler Plan discussed with: Patient, Other Date of Service: Dec 04, 2024 Billing Provider: QUINCY MINER MD Common Visit Codes: [id number] INP/OBS CARE(HIGH) ANGUS WELSH RESIDENT Dec 04, 2024 15:23 QUINCY MINER MD Dec 07, 2024 01:08
[2024-12-04] MEDS: SUCRALFATE 1 GM/10 ML ORAL SUSP PO ONE (16:07)
[2024-12-04 17:00] VITALS: BP 131/84; PULSE 74; RESP 20; TEMP 97.9; O2SAT 95
[2024-12-04 20:00] VITALS: PULSE 67; O2SAT 92
[2024-12-04] MEDS: MORPHINE SULFATE INJ 2 MG/ml SYRG IV PRN (20:45)
[2024-12-04] MEDS: SUCRALFATE 1 GM/10 ML ORAL SUSP PO SCH (21:37)
[2024-12-04] MEDS: CITALOPRAM HYDROBR 20 MG TAB PO ONE (21:38)
[2024-12-04] MEDS: AMITRIPTYLINE HCL 25 MG TAB PO SCH (21:38)
[2024-12-04] MEDS: risperiDONE 1 MG TAB PO ONE (21:38)
[2024-12-05 01:00] VITALS: BP 135/75; PULSE 63; RESP 18; TEMP 97.9; O2SAT 96
[2024-12-05 05:00] VITALS: BP 135/74; PULSE 71; RESP 18; TEMP 97.9; O2SAT 94
[2024-12-05 06:36] LABS: Basophils # (auto) 0.1 10 ^3/uL (0-0.2); Basophils % (auto) 0.7 % (0.0-2.0); Eosinophils # (auto) 0.1 10 ^3/uL (0-0.8); Hematocrit 37.7 % (41.0-53.0); Hemoglobin 12.4 g/dL (13.5-17.5); Lymphocytes # (auto) 2.2 10 ^3/uL (0.4-5.4); Lymphocytes % (auto) 25.7 % (10.0-50.0); Mean Corpuscular Hemoglobin 28.3 pg (28.0-32.0); Mean Corpuscular Volume 85.6 fL (80.0-100.0); Monocytes # (auto) 0.5 10 ^3/uL (0-1.3); Monocytes % (auto) 5.7 % (0.0-12.0); Neutrophils # (auto) 5.7 10 ^3/uL (1.6-8.6); Neutrophils % (auto) 66.9 % (37.0-80.0); Nucleated Red Blood Cells % 0.1 %; Platelet Count (auto) 254 10^3/uL (140-450); Red Cell Distribution Width 13.8 % (11.8-14.3); White Blood Cell 8.6 10^3/uL (4.4-10.8)
[2024-12-05 06:49] LABS: Potassium 4.1 mmol/L (3.5-5.1); Sodium 139 mmol/L (136-145)
[2024-12-05 06:50] LABS: Anion Gap 9 (5-15); Carbon Dioxide 22 mmol/L (20-31)
[2024-12-05 06:55] LABS: BUN/Creatinine Ratio 9.8 (10.0-20.0); Blood Urea Nitrogen 11 mg/dL (9-23); Glucose 87 mg/dL (74-106)
[2024-12-05 06:56] LABS: Chloride 108 mmol/L (98-107)
[2024-12-05 09:00] VITALS: BP 144/88; PULSE 88; RESP 20; TEMP 98.2; O2SAT 97
[2024-12-05] MEDS: CITALOPRAM HYDROBR 20 MG TAB PO SCH (09:23)
[2024-12-05] MEDS: risperiDONE 1 MG TAB PO SCH (09:23)
[2024-12-05] MEDS ORDERED: SIMETHICONE 80 MG CHEWABLE TABLET PO ONE (09:45)
[2024-12-05] MEDS ORDERED: SIMETHICONE 80 MG CHEWABLE TABLET PO SCH (12:00)
[2024-12-05 13:00] VITALS: BP 139/80; PULSE 84; RESP 20; TEMP 98.2; O2SAT 94
--- NOTE | 2024-12-05 13:43 | DVHSR ---
APPROVED REPORT EXAM: LIMITED Two-dimensional and M-mode echocardiogram with Doppler and color Doppler. Blood Pressure: 127/83 mmHg INDICATION HX CAD w/ Stent placement RISK FACTORS Obesity: Height: 5' 5", Weight: 190 DIMENSIONS LVDd4.4 (3.8-5.7cm)LA (2D)3.5 (1.9-4.0cm)Aortic Root (2.0-3.7cm) LVDs3.6 (2.5-4.0cm)LA (MM) (1.9-4.0cm)Aortic Cusp Exc2.0 (1.5-2.0cm) EF (%) 40.0 (55-70%)Rt. Atrium3.3 (1.9-4.0cm)Asc. Aorta cm IVSd0.9 (0.7-1.1cm)RV (D) (1.8-2.4cm) PWd0.7 (0.7-1.1cm) Mitral Valve MitralMitral Stenosis E wave0.80m/sMV Mean GR.mmHg A wave0.70m/sMV Peak GR.mmHg E/A ratio1.12D MVAcm2 Aortic Valve Aortic ValveAortic Stenosis V10.70m/Dionte Mean GR.3mmHg V21.10m/Dionte Peak GR.5mmHg LVOT Diameter2.4 (1.8-2.4cm)Doppler AVA2.88cm2 Other Information Quality : Technically LimitedRhythm : Technically limited study due to body habitus, patient holding his breath. Conclusion Difficult study. Difficult acoustic windows. Off axis views. Concentric LVH. Aortic root enlargement. Valves are normal. EF of 60% with normal RV function. Dopplers unremarkable. No pericardial effusion masses or vegetations.
[2024-12-05 14:46] LABS: Hematocrit 41.2 % (41.0-53.0); Hemoglobin 13.7 g/dL (13.5-17.5)
[2024-12-05] MEDS ORDERED: SUCR1SUS5 PO (15:20)
[2024-12-05] MEDS ORDERED: PANT40TA2 PO (15:20)
--- NOTE | 2024-12-05 15:22 | DVHDSRES ---
Discharge Summary Date of Admission Resident Creating Document: ANGUS WELSH RESIDENT Dec 03, 2024 at 23:22 Date of Discharge: Dec 05, 2024 Admitting Diagnosis Intractable abdominal pain Wounds: No wound was present Labs/Diagnostic Data: Laboratory Results Test 12/05/24 14:35 12/05/24 04:45 12/04/24 13:10 12/03/24 18:40 Hemoglobin 13.7 g/dL (13.5-17.5) Hematocrit 41.2 % (41.0-53.0) White Blood Count 8.6 10^3/uL (4.4-10.8) Red Blood Count 4.40 10^6/uL (4.5-5.90) Mean Corpuscular Volume 85.6 fL (80.0-100.0) Mean Corpuscular Hemoglobin 28.3 pg (28.0-32.0) Mean Corpuscular Hemoglobin Concent 33.0 g/dL (32.0-36.0) Red Cell Distribution Width 13.8 % (11.8-14.3) Platelet Count 254 10^3/uL (140-450) Mean Platelet Volume 8.6 fL (6.9-10.8) Neutrophils (%) (Auto) 66.9 % (37.0-80.0) Lymphocytes (%) (Auto) 25.7 % (10.0-50.0) Monocytes (%) (Auto) 5.7 % (0.0-12.0) Eosinophils (%) (Auto) 1.0 % (0.0-7.0) Basophils (%) (Auto) 0.7 % (0.0-2.0) Neutrophils # (Auto) 5.7 10 ^3/uL (1.6-8.6) Lymphocytes # (Auto) 2.2 10 ^3/uL (0.4-5.4) Monocytes # (Auto) 0.5 10 ^3/uL (0-1.3) Eosinophils # (Auto) 0.1 10 ^3/uL (0-0.8) Basophils # (Auto) 0.1 10 ^3/uL (0-0.2) Nucleated Red Blood Cells 0.1 % Sodium Level 139 mmol/L (136-145) Potassium Level 4.1 mmol/L (3.5-5.1) Chloride Level 108 mmol/L (98-107) Carbon Dioxide Level 22 mmol/L (20-31) Anion Gap 9 (5-15) Blood Urea Nitrogen 11 mg/dL (9-23) Creatinine 1.12 mg/dL (0.700-1.30) Glomerular Filtration Rate Calc 77 mL/min (>90) BUN/Creatinine Ratio 9.8 (10.0-20.0) Serum Glucose 87 mg/dL (74-106) Calcium Level 9.0 mg/dL (8.7-10.4) Stool Occult Blood Negative (Negative) Stool Occult Blood Sample #3 (Negative) Urine Color Light-yellow (Yellow) Urine Clarity Clear (Clear) Urine pH 8.0 (5.0-9.0) Urine Specific [place] 1.016 (1.001-1.035) Urine Protein Negative (Negative) Urine Ketones Negative (Negative) Urine Blood Negative /uL (Negative) Urine Nitrite Negative (Negative) Urine Bilirubin Negative (Negative) Urine Urobilinogen Normal mg/dL (Negative) Urine Leukocyte Esterase Negative /uL (Negative) Urine RBC 2 /hpf (0 - 3) Urine Microscopic WBC 1 /HPF (0-3) Urine Squamous Epithelial Cells Few /hpf (<5) Urine Amorphous Crystals Few /hpf (None Seen) Urine Bacteria None seen /hpf (None Seen) Urine Glucose Normal mg/dL (Normal) Urine Opiates Screen Neg (NEGATIVE) Urine Fentanyl Screen Neg (NEGATIVE) Urine Barbiturates Screen Neg (NEGATIVE) Urine Phencyclidine Screen Neg (NEGATIVE) Urine Amphetamines Screen Neg (NEGATIVE) Urine Benzodiazepines Screen Neg (NEGATIVE) Urine Cocaine Screen Neg (NEGATIVE) Urine Cannabinoids Screen Pos (NEGATIVE) Test 12/03/24 18:30 12/03/24 17:18 12/03/24 17:10 Troponin I High Sensitivity 5 ng/L (</=54) Prothrombin Time 11.4 sec (9.3-11.8) Prothrombin Time INR 1.08 (0.9-1.15) Activated Partial Thromboplast Time 27.5 SEC (24.5-34.5) Hemoglobin A1c 5.6 % A1C (<5.7) Magnesium Level 1.9 mg/dL (1.6-2.6) Total Bilirubin 0.6 mg/dL (0.2-1.0) Aspartate Amino Transferase (AST) 38 U/L (13-40) Alanine Aminotransferase (ALT) 32 U/L (7-40) Alkaline Phosphatase 113 U/L (46-116) B-Type Natriuretic Peptide 26.60 pg/mL (0-100) Total Protein 8.4 g/dL (5.7-8.2) Albumin 5.1 g/dL (3.2-4.8) Lipase 24 U/L (12-53) Plasma/Serum Blood Alcohol < 3.0 mg/dL (<10) Lactic Acid Level 2.0 mmol/L (0.4-2.0) Other Laboratory Tests 12/05/24 14:35 12/05/24 04:45 Brief Hx & Hospital Course: Patient is a 59 year male with past medical history of CAD status post stent placement, chronic back pain presented to the ED with 1 day history of severe epigastric pain. Patient described the pain as burning sensation in his stomach. He actually had a similar episode about a year ago where he presented to the ED and received a cocktail that made him feel better and was later diagnosed of acid reflux and started on omeprazole. He has been well until yesterday morning. Patient said he started having burning pains in his epigastric region rated 10/10 with no radiation but associated with nausea and vomiting. Patient mentioned that he had vomited blood once and subsequent vomit were brownish in color. Patient has never had an EGD or a colonoscopy. Hospital course: Patient was presented with intractable abdominal pain likely due to gastritis, rule out Possible upper GI bleeding and CT abdomen pelvis was unremarkable. Patient Was treated with IV Protonix 40 mg b.i.d, Carafate 1 g p.o. b.i.d.,IV normal saline and resumed home medications. GI evaluated the patient and recommended EGD but patient refused to do that and Stool occult blood was negative. Hemoglobin and hematocrit was stable throughout the hospital stay. Discharge plan was discussed with the patient and all questions were answered. Patient is being discharged to home with Protonix 40 mg p.o. daily and Carafate 1 g p.o. b.i.d. for 1 month and advised to follow up with continuity clinic in 1 week and outpatient Gastroenterology in 1-2 weeks. Physical examination on the day of discharge: General Appearance: Alert, Oriented X3, Cooperative, No acute distress HEENT: Atraumatic, PERRLA, EOMI, Mucous membrane moist/pink Respiratory: Clear to auscultation, Normal air movement Cardiovascular: Regular rate, Normal S1, Normal S2, No murmurs, no chest wall tenderness Abdominal: Normal bowel sounds, Soft, No tenderness, No hepatosplenomegaly, No masses Extremities: No clubbing, No cyanosis, No edema, Normal pulses, No tenderness/swelling Skin: No rashes, No breakdown, No significant lesion Neuro: Normal gait, Normal speech, Strength at 5/5 X4 ext, Normal tone, Sensation intact, grossly intact cranial Psych/Mental Status: Mental status NL, Mood NL Case discussed with Dr. Gurrola Consults/Reason for consult GI was consulted Operations or Procedures Exam: CT CT AB PEL WO CON-NO ORAL OR IV FINDINGS: Evaluation of solid organs is limited due to lack of intravenous contrast use. Findings: Lung Bases: No acute or significant lung base finding. Normal heart size. No pleural or pericardial effusion. Liver: The liver is normal in size. No focal lesions. Gallbladder and Biliary Tree: Unremarkable Spleen: Unremarkable Pancreas: The pancreas is grossly normal in appearance. Adrenal Glands: Unremarkable Kidneys: Kidneys are grossly normal without calculi or hydronephrosis. Bladder: Grossly unremarkable for degree of distention. Bowel: The stomach is grossly normal in appearance. Small bowel and colon are normal in caliber and distribution. The appendix is not visualized; however, no secondary findings of acute appendicitis identified. Ascites: Absent Lymphadenopathy: No mesenteric, retroperitoneal or periportal lymphadenopathy. Abdominal Wall and Mesentery: Unremarkable. Vasculature: The visualized abdominal aorta is normal in size and caliber. Evaluation of abdominal and pelvic vessels is limited due to lack of intravenous contrast. Pelvic Organs: Unremarkable Musculoskeletal: No aggressive focal bony lesions, acute fractures or dislocation. Soft tissues: Unremarkable IMPRESSION: 1. No findings to suggest bowel obstruction. 2. No calcified gallstones 3. No nephrolithiasis or hydronephrosis. 4. Small hiatal hernia. Condition at Discharge: Stable Final Diagnosis/Problems List # Intractable abdominal pain likely due to gastritis # Ruled out upper GI bleeding # LIA likely hemodynamically mediated /VMN # Hypercalcemia likely due to dehydration resolved # Cannabinoid use disorder Discharge Disposition: Home Discharge Instruct/Medications Diet: Regular Activity: No Restrictions, As Tolerated Follow Up/Referral: Follow up with continuity clinic in 1 week Follow up with Outpatient Gastroenterology in 1 to 2 weeks. Medications: As per EMR Discharge Statement: "Patient was advised to return to the ER or call 911 if any headaches, dizziness, shortness of breath, chest pain, abdominal pain, bleeding, fevers, or worsening of medical condition. Patient was counseled about treatment plan, medications, possible side effects, patientverbalized understanding. All questions were answered to the best of my ability. This discharge took greater then 30 minutes in planning, reviewing documentation, counseling the patient, and discussing with other team members." ASSESSMENT ASSESSMENT Assessment # Intractable abdominal pain likely due to gastritis # Ruled out upper GI bleeding # LIA likely hemodynamically mediated /VMN # Hypercalcemia likely due to dehydration resolved # Cannabinoid use disorder Addendum Addendum Addendum I was physically present for the alberto portions of the service provided to patient by THE RESIDENT. I have reviewed the documentation, discussed the case with resident and agree with the resident's documentation except as noted. Also the patient's clinical case was discussed with the patient's nurse. This medical document was created using an electronic medical record system with computerized dictation system. Although this document has been carefully reviewed, there might still be some phonetic and typographical errors. These areas are purely typographical due to imperfections of the software programs, and do not reflect any compromise in the patient's medical care. Late signature. Date of Service: Dec 05, 2024 Billing Provider: FRANCISCO GURROLA MD Common Visit Codes: [id number] DISCH DAY >30min ANGUS WELSH RESIDENT Dec 05, 2024 15:22 FRANCISCO GURROLA MD Dec 05, 2024 18:59
[2024-12-05 15:58] VITALS: BP 139/80; PULSE 84; RESP 20; TEMP 98.2; O2SAT 94
[2024-12-05 17:00] VITALS: BP 137/83; PULSE 72; RESP 20; TEMP 98; O2SAT 96
== END 2024-12-05 17:30 | disposition home or self-care (01) | DRG 391 ==
LOC: ER 16:57 → OVERFLOW 23:22 → WEST WING 12-04 02:10
PROVIDERS: ADMIT Student in an Organized Health Care Education/Training Program; ATTEND Student in an Organized Health Care Education/Training Program
DX: K29.70 Gastritis, unspecified, without bleeding (principal); N17.0 Acute kidney failure with tubular necrosis; E86.0 Dehydration; E83.52 Hypercalcemia; I25.10 Atherosclerotic heart disease of native coronary artery without angina pectoris; K44.9 Diaphragmatic hernia without obstruction or gangrene; I10 Essential (primary) hypertension; E78.5 Hyperlipidemia, unspecified; F12.90 Cannabis use, unspecified, uncomplicated; Z87.11 Personal history of peptic ulcer disease; Z95.5 Presence of coronary angioplasty implant and graft
CPT/HCPCS: 36415; 74176; 80048; 80053; 80307; 80320; 81001; 82270; 83036; 83605; 83690; 83735; 83880; 84484; 85014; 85018; 85025; 85610; 85730; 86850; 86900; 86901; 93005; 93306; 96365; 96375; G0378; J2405; J2470; J2543; J3490